=== PATIENT | female | born 1990 | race Caucasian/White ===

== ENCOUNTER → 2018-10-28 13:15 | Outpatient (CLI) | payer BC, SELFPAY ==
--- NOTE | 2018-10-28 13:31 | XR_ITS ---
XR knee LT 4V HISTORY: ITS.REASON: LT knee pain ORDERING PHYSICIAN: Karin Saha MD PATIENT AGE: 27 years COMPARISON: None FINDINGS: There is minor joint space narrowing medially. There is no spurring the tibial spines. There is no fracture or loose body. The patella is intact and I see no effusion. IMPRESSION: Very minor or early degenerative change medial joint space otherwise negative left knee
== END ==
PROVIDERS: PCP Family Medicine; Visit Provider Orthopaedic Surgery
DX: M25.562 Pain in left knee (principal)
CPT/HCPCS: 73564

== ENCOUNTER → 2018-12-16 10:59 | Outpatient (CLI) | payer BC, SELFPAY ==
--- NOTE | 2018-12-16 11:06 | XR_ITS ---
XR knee RT 4V HISTORY: Knee pain ITS.REASON: 4 views WB ORDERING PHYSICIAN: Karin Saha MD PATIENT AGE: 28 years COMPARISON: None FINDINGS: No fracture or dislocation. No lytic or blastic change. Normal mineralization. No significant arthritic changes evident. No other significant findings IMPRESSION: Negative Knee
--- NOTE | 2018-12-16 11:06 | XR_ITS ---
Repeat View XR CLINICAL INDICATION: Pain ORDERING PHYSICIAN: Karin Saha MD PATIENT AGE: 28 years Comparison: None FINDINGS: Repeat sunrise view performed shows no significant abnormalities. IMPRESSION: Negative sunrise view of the left knee
== END ==
PROVIDERS: PCP Family Medicine; Visit Provider Orthopaedic Surgery
DX: M25.561 Pain in right knee (principal)
CPT/HCPCS: 73564